=== PATIENT | female | born 1955 | race Caucasian/White ===

== ENCOUNTER 2019-03-18 15:16 | Emergency (ER) | payer MEDICARE, BC ==
[2019-03-18 16:12] VITALS: BP 137/75
--- NOTE | 2019-03-18 17:11 | UC ---
Skin Complaint HPI - HPI Summary HPI Summary: 64-year-old woman comes in with a chief complaint of infection of the left earlobe. I'll 4 days ago at the site of her left earring she started noticing irritation and redness. There's been some drainage. No fevers or chills feels well otherwise. - History of Current Complaint Chief Complaint: UCEar Time Seen by Provider: 03/18/19 17:01 Stated Complaint: LEFT EAR PAIN Hx Last Menstrual Period: n/a Pain Intensity: 2 - Allergy/Home Medications Allergies/Adverse Reactions: Allergies Allergy/AdvReac Type Severity Reaction Status Date / Time No Known Allergies Allergy Verified 03/18/19 16:04 Home Medications: Home Medications Acetaminophen [Tylenol Extra Strength] 100 mg PO Q6H PRN 03/18/19 [History Confirmed 03/18/19] Apixaban* [Eliquis*] 5 mg PO BID 03/18/19 [History Confirmed 03/18/19] PMH/Surg Hx/FS Hx/Imm Hx Previously Healthy: Yes Endocrine History: Hypothyroidism Other Cardiovascular History: HEART VALVE CONDITION GI/ History: Gastroesophageal Reflux - Surgical History Surgical History: Yes Surgery Procedure, Year, and Place: Complete Hysterectomy 2007, open heart surgery at age 4; Pace maker surgeries x 8 - Family History Known Family History: Positive: None - Social History Alcohol Use: Rare Substance Use Type: None Smoking Status (MU): Never Smoked Tobacco Review of Systems All Other Systems Reviewed And Are Negative: Yes Constitutional: Positive: Negative Skin: Positive: Other - SEE HPI Eyes: Positive: Negative ENT: Positive: Negative Respiratory: Positive: Negative Cardiovascular: Positive: Negative Gastrointestinal: Positive: Negative Motor: Positive: Negative Neurovascular: Positive: Negative Musculoskeletal: Positive: Negative Neurological: Positive: Negative Psychological: Positive: Negative Is Patient Immunocompromised?: No Physical Exam Triage Information Reviewed: Yes Appearance: Well-Appearing, No Pain Distress, Well-Nourished Vital Signs: Initial Vital Signs Temp 97.3 F 03/18/19 16:07 Pulse 70 03/18/19 16:07 Resp 18 03/18/19 16:07 BP 137/75 03/18/19 16:07 Pulse Ox 99 03/18/19 16:07 Vital Signs Reviewed: Yes Eye Exam: Normal Eyes: Positive: Conjunctiva Clear ENT: Negative: Nasal congestion, Nasal drainage Neck: Positive: Supple Respiratory: Positive: No respiratory distress Musculoskeletal Exam: Normal Musculoskeletal: Positive: Strength Intact, ROM Intact Neurological Exam: Normal Neurological: Positive: Alert, Muscle Tone Normal Psychological Exam: Normal Psychological: Positive: Age Appropriate Behavior Skin: Positive: Other - On the left lower earlobe at the site of an earring piercing there is erythema 1 cm in diameter. There is no fluctuance collection that is palpable. No drainage. Course/Dx - Diagnoses Provider Diagnosis: Infection of left earlobe Discharge - Sign-Out/Discharge Documenting (check all that apply): Patient Departure All imaging exams completed and their final reports reviewed: No Studies - Discharge Plan Condition: Stable Disposition: HOME Prescriptions: Cephalexin CAP* [Keflex CAP*] 500 mg PO TID #30 cap Mupirocin 1 applic TOPICAL BID #22 gm Patient Education Materials: Pierced Earlobe Infection (ED) Referrals: Félix Verdin MD [Primary Care Provider] - Additional Instructions: FOLLOW UP WITH YOUR DOCTOR IF NOT COMPLETELY IMPROVED. GET REEVALUATED SOONER IF WORSE OR ANY QUESTIONS OR CONCERNS. - Billing Disposition and Condition Condition: STABLE Disposition: Home
== END 2019-03-18 17:15 | disposition home or self-care (01) ==
LOC: UCCORT 15:16
DX: H60.92 Unspecified otitis externa, left ear (principal); Z79.01 Long term (current) use of anticoagulants; Z95.1 Presence of aortocoronary bypass graft; Z95.0 Presence of cardiac pacemaker
CPT/HCPCS: 99212; G0463